=== PATIENT | male | born 1970 | race Caucasian/White ===

== ENCOUNTER 2024-02-23 19:57 | Emergency (ER) | payer OTHER, SELFPAY ==
[2024-02-23 19:58] VITALS: BP 179/89; PULSE 89; RESP 18; TEMP 36.6; O2SAT 98; BMI 30.4
--- NOTE | 2024-02-23 20:17 | EKG12_ITS ---
Test Reason : Blood Pressure : */* mmHG Vent. Rate : 82 BPM Atrial Rate : 82 BPM P-R Int : 142 ms QRS Dur : 102 ms QT Int : 352 ms P-R-T Axes : 48 -17 1 degrees QTcB Int : 411 ms Normal sinus rhythm Incomplete right bundle branch block Minimal voltage criteria for LVH, may be normal variant ( R in aVL ) Borderline ECG Confirmed by GERARDO BARFIELD, GAYLA ([id number]), fashion editor MANUEL MATHIS ([id number]) on 02/24/2024 9:47:27 AM Referred By: Confirmed By: GAYLA CARRILLO MD
--- NOTE | 2024-02-23 20:18 | ED.VIS.CHEST ---
HPI History of Present Illness Chief Complaint: Chest Other Informant: patient and spouse/S.O. Narrative Narrative: Intermittent midsternal chest tightness 4 to 5 days. More frequent over the last 2 days. Pain to his neck. No pain in arm or back. No dyspnea. Occasional cough. No tobacco history. No family history of rising age. No history of hypertension, diabetes, hyperlipidemia. Took couple aspirin 2 days ago. Took ibuprofen earlier today. Pain currently mild. Denies any history of stress test or heart caths in the past. Prior Similar Symptoms: No CVD Risk Factors: Negative for Hypertension, Diabetes, Hypercholesterolemia, Family History 1' </=55 or Smoking PE Risk Factors: Negative for Recent Travel/Surgery, Recent Immobilization or Prior DVT or PE [facility] Medical History Hepatitis Home Medications ?Medication ?Instructions ?Recorded ?Last Taken ?Type pantoprazole 40 mg tablet,delayed 40 mg PO DAILY #30 tabs 02/23/24 Unknown Rx release sucralfate 1 gram tablet (Carafate) 1 g PO Q6H #60 tabs 02/23/24 Unknown Rx Allergy/AdvReac Type Severity Reaction Status Date / Time No Known Allergies Allergy Verified 02/23/24 19:58 Family History no significant family his Surgical History no surgical history Social History Smoking Status: Never smoker [facility] ED Constitutional Constitutional ED: Denies chills, fever(s) or sweats ENT ENT ED: Denies sore throat Cardiovascular Cardiovascular: Reports chest pain; Denies leg edema, palpitations or racing heartbeat Respiratory/Chest Respiratory/Chest: Denies cough, dyspnea or dyspnea on exertion Gastrointestinal Gastrointestinal: Denies abdominal pain, diarrhea, nausea or vomiting Genitourinary Genitourinary ED: Denies dysuria, hematuria or urinary frequency Musculoskeletal Musculoskeletal: Reports neck pain; Denies back pain or extremity pain Integumentary Denies rash or wounds Neurologic Neurologic: Denies headache(s), paresthesias or weakness EXAM Physical Exam Const Vital Signs: 02/23/24 19:58 02/23/24 20:06 02/23/24 20:19 Temperature 98 F Temperature Source Oral Pulse Rate 89 Respiratory Rate 18 Respiratory Effort Normal Blood Pressure 179/89 H Blood Pressure Mean 119 Pulse Ox 98 99 Oxygen Delivery Method Room Air Room Air 02/23/24 21:58 Temperature Temperature Source Pulse Rate 72 Respiratory Rate 16 Respiratory Effort Blood Pressure 141/89 H Blood Pressure Mean 106 Pulse Ox 94 Oxygen Delivery Method Room Air Positive well nourished and well developed General Appearance ED: well developed and NAD HEENT Reports moist mucous membranes normocephalic and atraumatic Eyes General Eye ED: Yes normal appearance of both eyes Neck full ROM Chest Wall Chest: Negative for tenderness Resp normal respiratory effort and normal air movement Effort and Inspection: symmetric chest movement; Negative for respiratory distress Cardio regular rate, regular rhythm and no murmurs Peripheral Pulses: pulses 2+ throughout GI normal to inspection, nondistended, normoactive bowel sounds and non-tender Palpation: Negative for guarding or rebound tenderness present Extremity normal to inspection General Extremety ED: Negative for edema or tenderness General Extremity: Negative for edema Neuro oriented x3 and no sensory deficits noted Sensorium / Orientation: awake and alert Skin no rashes or lesions noted and no wounds Heart Score History: Slightly/Non-Suspicious ECG: Normal Age: >45 - <65 years Risk Factors: 1 or 2 Risk Factors Troponin: </= Normal Limit Score: 2 MDM MDM MDM Narrative Medical decision making narrative: Interventions / MDM: Differential diagnosis: Atypical chest pain, gastritis Diagnosis considered but do not suspect: Pneumonia however chest x-ray negative. My EKG interpretation: Sinus rate of 82, no ST changes, isolated T wave version leads III. Nonspecific. QTc 411. Imaging independently reviewed and interpreted by myself: 1 view chest x-ray: No acute process. External documents reviewed: N/A Test considered but not ordered:N/A ED course: Progressive chest symptoms more persistent with tightness. EKG is nonspecific T wave versions. Cardiac workup initiated. Aspirin ordered. 2144: Initial troponin negative. Chest x-ray negative. Hemoglobin 14.4. Creatinine 1.18. Patient states he feels minimal symptoms. He is reporting times symptoms do worsen with food. Denies black or bloody stools. He will be given a GI cocktail. Will await delta troponin. 0: Reports there was some improvement with the GI cocktail swish in the throat weakness only minimal symptom in the chest. Awaiting results of delta troponin at this time. 2255: Delta troponin negative at 8. He states daily when drinks 1 coffee does feel the indigestion symptoms. I will place on pantoprazole and Carafate. He denies any black or bloody stools he will monitor for this. He is given follow-up GI. 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 patient to discuss with his PCP potential pulmonary function test as an outpatient. All questions were answered. Re-evaluation: stable Disposition discussed with patient/family/significant other: Patient and spouse Case discussed with consulting clinician: N/A This note was generated with [employer] dictation software. It may contain incorrect words, spelling, and punctuation that were not noted in checking the note before signing. Lab Data Attestation: I reviewed the patient's lab results. Labs: Laboratory Results - last 24 hr 02/23/24 02/23/24 20:10 22:28 WBC 8.3 RBC 4.81 Hgb 14.4 Hct 42.1 MCV 87.5 MCH 29.9 MCHC 34.2 RDW Std Deviation 41.0 RDW Coeff of Sariah 12.7 Plt Count 235 MPV 9.5 Immature Gran % (Auto) 0.200 Neut % (Auto) 56.0 Lymph % (Auto) 34.5 [place] % (Auto) 7.4 Eos % (Auto) 1.5 Baso % (Auto) 0.4 Absolute Neuts (auto) 4.6 Absolute Lymphs (auto) 2.85 Nucleated RBC % 0 PT 12.4 INR 0.9 APTT 24.2 Sodium 139 Potassium 3.5 Chloride 105 Carbon Dioxide 27.0 Anion Gap 7 BUN 18 Creatinine 1.18 Estim Creat Clear Calc 80.72 Est GFR (MDRD) Af Amer 83 Est GFR (MDRD) Non-Af 68 BUN/Creatinine Ratio 15.3 Glucose 144 H Calcium 8.8 Troponin I High Sens 7 8 Radiography Diagnostic Testing: Clinical Impression(s) from Imaging Studies Chest X-Ray 02/23/24 20:36 IMPRESSION: No focal infiltrate or edema. Electronically Signed: Emmanuel Soni MD at 22:01 EST , Discharge Plan Triage Chief Complaint: Chest Other ED Provider: Regino Douglass Dx/Rx/DC Orders Clinical Impression: Atypical chest pain, Gastritis Instructions: ED Chest Pain, Uncertain Cause, ED Gastritis (Adult) Prescriptions: New sucralfate [Carafate] 1 gram tablet 1 g PO Q6H Qty: 60 0RF pantoprazole 40 mg tablet,delayed release (DR/EC) 40 mg PO DAILY Qty: 30 0RF Primary Care Provider: Charan Richmond Referrals: Blake Hsu DO [Non-Staff] - 3-5 Days Supa Maki DO [Med Staff - Active Staff] - 1-2 Weeks Activity Restrictions/Additional Instructions: Cardiac workup negative. Symptoms were improving with GI cocktail. Take GI medicines as prescribed. Watch for black or bloody stools. Follow-up with Dr. Maki for outpatient evaluation. Your chest x-ray is negative. You will concern with lung issues with your work exposure. Discussed with your primary care doctor potential pulmonary function test as an outpatient. Print Language: Surinamese Disposition Disposition: Home, Self Care
[2024-02-23 20:19] VITALS: O2SAT 99
[2024-02-23] MEDS: Aspirin 81 MG TAB.CHEW 324 MG PO (20:21)
[2024-02-23 20:24] LABS: Absolute Lymphocyte Count 2.85 X10^3/uL (0.83-4.51); Absolute Neutrophil Count 4.6 X10^3/uL (2.0-7.7); Basophil# 0.03 X10^3/uL; Basophil% 0.4 % (0-1); Eosinophil# 0.12 X10^3/uL; Eosinophils% 1.5 % (0-5); Hematocrit 42.1 % (40-54); Hemoglobin 14.4 g/dL (13.0-16.5); Lymphocyte # 2.85 X10^3/ul (0.83-4.51); Lymphocyte % 34.5 % (19-41); Mean Corp Hgb Conc 34.2 g/dL (32-36); Mean Corpuscular Hgb 29.9 pg (27.0-32.0); Mean Corpuscular Volume 87.5 fL (80-94); Mean Platelet Vol. 9.5 fl (6.2-12.0); Monocyte# 0.61 X10^3/uL; Monocyte% 7.4 % (0-10); NRBC Flagged by Analyzer 0 % (0-5); Neutrophil # 4.62 X10^3/uL (2.7-7.7); Platelet Count 235 K/mm3 (150-450); RBC Distribution Width CV 12.7 % (11.6-14.6); Red Blood Count 4.81 M/mm3 (4.6-6.2); White Blood Count 8.3 K/mm3 (4.4-11.0)
[2024-02-23 20:35] LABS: International Normalized Ratio 0.9; Prothrombin Time (Protime)PT. 12.4 SECONDS (11.7-14.9)
[2024-02-23 20:36] LABS: Partial Thromboplast Time 24.2 Seconds (24.1-36.2)
--- NOTE | 2024-02-23 20:36 | RAD_ITS ---
STUDY: X-RAY CHEST REASON FOR EXAM: Male, 54 years old. Chest pain TECHNIQUE: AP portable view of the chest. COMPARISON: None. FINDINGS: There are monitoring devices. The lungs are clear and expanded. There is no demonstrated pleural abnormality. Normal size heart. Normal mediastinum and amanda. Normal visualized pulmonary arteries. Normal visualized aortic arch and descending thoracic aorta. Normal visualized thoracic spine. There is calcification of the left shoulder and possible calcific tendinopathy. There is no demonstrated abnormality of the visualized soft tissue structures of the upper abdomen. RAD/Chest 1 View (Portable) IMPRESSION: No focal infiltrate or edema. Electronically Signed: Emmanuel Soni MD at 22:01 EST ,
[2024-02-23 20:42] LABS: Anion Gap 7 (5-15); BUN 18 mg/dL (7-18); BUN/Creat Ratio 15.3 RATIO (10-20); Calcium,Total 8.8 mg/dL (8.5-10.1); Chloride 105 mmol/L (98-107); Creatinine, Serum 1.18 mg/dL (0.70-1.30); EST Glomerular Filtration Rate 68 mL/min (>60); Est Glom Filt Rate - Afr Amer 83 mL/min (>60); Estimated Creatinine Clearance 80.72 ml/min; Glucose 144 mg/dL (74-106); Potassium 3.5 mmol/L (3.5-5.1); Sodium Level 139 mmol/L (136-145); Troponin-I HS (w/2H Reflex) 7 pg/mL (3.0-78.0)
[2024-02-23] MEDS: Lidocaine 2% Viscous15 ML UDC 15 ML PO (21:52)
[2024-02-23] MEDS: Mag Hydrox/Al Hydrox/Simeth 30 ML UDC PO (21:52)
[2024-02-23 21:58] VITALS: BP 141/89; PULSE 72; RESP 16; O2SAT 94
[2024-02-23 22:20] LABS: Reflex Troponin-HS? (from REC) Y
[2024-02-23 22:51] LABS: Troponin-I HS 8 pg/mL (3.0-78.0)
[2024-02-23 23:00] VITALS: BP 135/82; PULSE 69; RESP 14; O2SAT 97
[2024-02-23 23:03] VITALS: BP 135/82; PULSE 69; RESP 14; TEMP 36.6; O2SAT 97
== END 2024-02-23 23:09 | disposition home or self-care (01) ==
PROVIDERS: Emergency Provider Emergency Medicine; PCP Family Medicine; Visit Provider Emergency Medicine
DX: R07.89 Other chest pain (principal); K29.70 Gastritis, unspecified, without bleeding
CPT/HCPCS: 71045; 80048; 84484; 85025; 85610; 85730; 93005; 99284; A4216

== ENCOUNTER 2024-03-30 05:34 | Day surgery (SDC) | payer SELFPAY, OTHER ==
--- NOTE | 2024-03-28 16:02 | PAT.ANESEVAL ---
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 When Was Last Pacemaker Check QUESTION #4 FULL TEXT: You/Your Family Experience fever (hyperthermia) with Anesthesia Last Oral Intake Last Oral intake: Last Oral Intake NPO since Meds taken in AM with sips of water? Meds patient instructed to take am of surgery PONV PONV - college and career counselor: PONV - college and career counselor Female No 03/28/24 14:00 HX of Motion Sickness No 03/28/24 14:00 HX of N/V After Surgery No 03/28/24 14:00 Non-Smoker Yes 03/28/24 14:00 Duration of Surgery greater No 03/28/24 14:00 than 60 minutes Number of Risk Factors 1 03/28/24 14:00 PONV Score Low Risk 03/28/24 14:00 Height & Weight Height & Weight: Anesthesia: Height & Weight Height 5 ft 9 in 02/23/24 19:58 Respiratory Assessment Respiratory Assessment - college and career counselor: Respiratory Tract Infection Hx - college and career counselor Hx Respiratory Tract Infection No 03/28/24 14:00 STOP Sleep Apnea STOP Sleep Apnea - college and career counselor: STOP Sleep Apnea - college and career counselor Hx Hypertension No 03/28/24 14:00 Hx Sleep Apnea No 03/28/24 14:00 CPAP BIPAP Do you snore loudly (louder No 03/28/24 14:00 than talking or can be heard Do you often feel tired/ No 03/28/24 14:00 fatigued/ sleepy during daytime? Has anyone observed you stop No 03/28/24 14:00 breathing during sleep? STOP Results Negative 03/28/24 14:00 QUESTION #5 FULL TEXT : Do you snore loudly (louder than talking or can be heard through closed doors)? 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 Specify any problems Hx of Preganancy in last 3 N/A 03/28/24 14:00 Months Nurse Filling Out Transfusion NBUCHER 03/28/24 14:00 & Questions: Date: 03/28/24 03/28/24 14:00 Time: 14:01 03/28/24 14:00 Patient unable to answer at this time (ie. confused, unrespo /Reproduction History /Reproductive History - college and career counselor: /Reproductive Hx- college and career counselor Hx Now No 03/28/24 14:00 Gestational Age (in weeks): EDC: Hx Hx Para Hx Section SAB No 03/28/24 14:00 REPLACED BY [facility] Medical History (Updated 03/28/24 @ 14:04 by Lauren Sanchez) Wears glasses GERD (gastroesophageal reflux disease) Hepatitis Home Medications ?Medication ?Instructions ?Recorded ?Last Taken ?Type pantoprazole 40 mg tablet,delayed 40 mg PO DAILY #30 tabs 03/02/24 Unknown Rx release sucralfate 1 gram tablet (Carafate) 1 g PO Q6H #60 tabs 03/02/24 Unknown Rx Allergy/AdvReac Type Severity Reaction Status Date / Time No Known Allergies Allergy Verified 03/28/24 13:59 Family History no significant family his Social History Smoking Status: Never smoker Audit: Pertinent Findings HISTORY of Pertinent Findings History of Pertinent Findings: EKG from 02/23/24 showed incomplete RBB . No documented cardiac symptoms. Pertinent Findings EKG Perinent findings: incomplete RBB Recommendation Anesthesia Recommendation Anesthesia recommendation: OPTIMIZED for anesthesia
[2024-03-30] VITALS (8 sets, daily range): BP systolic 98–122; BP diastolic 67–89; PULSE 51–60; RESP 16–20; TEMP 36.6–36.8; O2SAT 93–98; BMI 29.5
--- NOTE | 2024-03-30 06:14 | PRE.ANES_ITS ---
ASA Classification* ASA Classification ASA Classification: 2 Assessment & Plan Anesthesia* Anesthesia Assessment Anesthesia Assessment: Discussed sedation and/or anesthesia options, risks, benefits, and alternatives with patient/parents/legal guardian/POA. Questions invited. The patient/parents/legal guardian/POA seems to understand and agrees to proceed with anesthesia plan. Reviewed the physical assessment, medical history, allergy history and patient home medications list prior to surgery/procedure/anesthetic and documented any changes. Performed airway and anesthesia risk assessments. Anesthesia Type Anesthesia Type: MAC History Source History Obtained from:: Patient and Chart Anesthesia Focused Assessment* Temperature: 98.2 F Pulse Rate: 58 Blood Pressure: 117/89 Respiratory Rate: 18 Pulse Ox: 98 Airway Assessment Mouth opens: >3 cm Mallampati Score: I Focused Labs Anesthesia Preop lab: CBC WBC 8.3 K/mm3 (4.4-11.0) 02/23/24 20:10 02/23/24 RBC 4.81 M/mm3 (4.6-6.2) 02/23/24 20:10 02/23/24 Hgb 14.4 g/dL (13.0-16.5) 02/23/24 20:10 02/23/24 Hct 42.1 % (40-54) 02/23/24 20:10 02/23/24 Plt Count 235 K/mm3 (150-450) 02/23/24 20:10 02/23/24 CHEMISTRY Potassium 3.5 mmol/L (3.5-5.1) 02/23/24 20:10 02/23/24 Sodium 139 mmol/L (136-145) 02/23/24 20:10 02/23/24 BUN 18 mg/dL (7-18) 02/23/24 20:10 02/23/24 Creatinine 1.18 mg/dL (0.70-1.30) 02/23/24 20:10 02/23/24 Glucose 144 mg/dL (74-106) H 02/23/24 20:10 02/23/24 COAG PT 12.4 SECONDS (11.7-14.9) 02/23/24 20:10 Pre-Assessment Diagnosis/Proposed Procedure Planned Operative Procedure(s): EGD Anesthesia History 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 When Was Last Pacemaker Check QUESTION #4 FULL TEXT: You/Your Family Experience fever (hyperthermia) with Anesthesia Last Oral Intake Last Oral intake: Last Oral Intake NPO since 21:00 03/30/24 05:54 Meds taken in AM with sips of No 03/30/24 05:54 water? 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 Female No 03/28/24 14:00 HX of Motion Sickness No 03/28/24 14:00 HX of N/V After Surgery No 03/28/24 14:00 Non-Smoker Yes 03/28/24 14:00 Duration of Surgery greater No 03/28/24 14:00 than 60 minutes Number of Risk Factors 1 03/28/24 14:00 PONV Score Low Risk 03/28/24 14:00 Height & Weight Height & Weight: Anesthesia: Height & Weight Height 5 ft 9 in 03/30/24 05:54 Weight: 90.7 kg 03/30/24 05:54 Body Mass Index (BMI) 29.5 03/30/24 05:54 Respiratory Assessment Respiratory Assessment - secretarial teacher: Respiratory Tract Infection Hx - secretarial teacher Hx Respiratory Tract Infection No 03/28/24 14:00 STOP Sleep Apnea STOP Sleep Apnea - secretarial teacher: STOP Sleep Apnea - secretarial teacher Hx Hypertension No 03/28/24 14:00 Hx Sleep Apnea No 03/28/24 14:00 CPAP BIPAP Do you snore loudly (louder No 03/28/24 14:00 than talking or can be heard Do you often feel tired/ No 03/28/24 14:00 fatigued/ sleepy during daytime? Has anyone observed you stop No 03/28/24 14:00 breathing during sleep? STOP Results Negative 03/28/24 14:00 QUESTION #5 FULL TEXT : Do you snore loudly (louder than talking or can be heard through closed doors)? 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 Specify any problems Hx of Preganancy in last 3 N/A 03/28/24 14:00 Months Nurse Filling Out Transfusion NBUCHER 03/28/24 14:00 & Questions: Date: 03/28/24 03/28/24 14:00 Time: 14:01 03/28/24 14:00 Patient unable to answer at this time (ie. confused, unrespo /Reproduction History /Reproductive History - secretarial teacher: /Reproductive Hx- secretarial teacher Hx Now No 03/28/24 14:00 Gestational Age (in weeks): EDC: Hx Hx Para Hx Section SAB No 03/28/24 14:00 [facility] Medical History (Updated 03/28/24 @ 14:04 by Lauren Sanchez) Wears glasses GERD (gastroesophageal reflux disease) Hepatitis Home Medications ?Medication ?Instructions ?Recorded ?Last Taken ?Type pantoprazole 40 mg tablet,delayed 40 mg PO DAILY #30 t abs 03/02/24 03/27/24 Rx release sucralfate 1 gram tablet (Carafate) 1 g PO Q6H #60 tab s 03/02/24 03/27/24 Rx Allergy/AdvReac Type Severity Reaction Status Date / Time No Known Allergies Allergy Verified 03/30/24 05:53 Family History no significant family his Social History Smoking Status: Never smoker Addt'l Information Additional Findings: Patient states [place], when donated blood said he might be HEP B positive (15 years ago per patient) Review of Systems (Anesthesia) ROS Narrative System reviewed and no additional complaints, except as documented. Gastrointestinal Gastrointestinal: Reports heartburn
--- NOTE | 2024-03-30 06:30 | EGD_PTH ---
PATIENT: LEAH THORNTON LOC: [facility] U#:[id number] AGE/SX: 54/M ROOM: RE03/30/[address]: Dr. Supa Maki DO : 1970 BED: DIS: 03/30/2024 SPEC #: [id number] RECD: 03/30/24 14:08 STATUS: CHERISE JORGE #: [id number] SAMARIA: 03/30/24 06:[address]: Supa Maki DEPT: SURGICAL PATHOLOGY RECD BY: Ana Cobb ENTERED: 04/02/24 08:36 SP TYPE: EGD BIOPSY OT DR: Dr. Charan Richmond DO Tissues: A - Duodenum, NOS B - Gastric mucous membrane C - Esophagus, NOS Procedures: Special Stain Group I Surgery Specimen Level IV Alcian Blue/PAS (control) HEADER OPERATION: EGD with biopsy PRE-OP DIAGNOSIS: Epigastric abdominal pain TISSUE SUBMITTED: A- Duodenum biopsy, B- Gastric body biopsy, C- Distal esophagus biopsy MICROSCOPIC DIAGNOSIS A. Duodenum, biopsy: Fragments of duodenal mucosa with congestion and hemorrhage. B. Gastric body, biopsy: Mild gastritis. See microscopic description and comment. C. Distal esophagus, biopsy: Fragments of gastroesophageal mucosa with focal intestinal metaplasia (goblet cell metaplasia), consistent with Mac's esophagus. Moderate chronic inflammation and minimal acute inflammation. Negative for dysplasia. See comment. 04/03/2024 COMMENT B. The results of immunohistochemistry for Helicobacter pylori will be reported separately ([id number]). C. Alcian blue/PAS stain with matched control is used in the evaluation of the specimen. Immunohistochemistry ([id number]) for P53 and Ki-67 will be performed, and results will be reported separately. MICROSCOPIC DESCRIPTION Slides are reviewed. B. The specimen shows fragments of gastric mucosa with chronic inflammatory cell infiltrates in the lamina propria consisting of lymphocytes and plasma cells, consistent with mild chronic gastritis. GROSS DESCRIPTION A. Received in fixative is one container labeled with the patient's name and designated Duodenum biopsy. The specimen consists of multiple irregular fragments of light quezada soft tissue that in aggregate measure 1.1 x 0.2 x 0.2 cm. The specimen is totally submitted in one cassette. B. Received in fixative is one container labeled with the patient's name and designated Gastric body biopsy. The specimen consists of one irregular fragment of light quezada soft tissue that measures 0.8 x 0.2 x 0.2 cm. The specimen is totally submitted in one cassette. C. Received in fixative is one container labeled with the patient's name and designated Distal esophagus biopsy. The specimen consists of two irregular fragments of light quezada soft tissue that in aggregate measure 0.9 x 0.3 x 0.2 cm. The specimen is totally submitted in one cassette. 04/02/2024 TC:3 CPT:56603r2,46344
--- NOTE | 2024-03-30 06:30 | IMM_PTH ---
PATIENT: LEAH THORNTON LOC: [facility] U#:[id number] AGE/SX: 54/M ROOM: RE03/30/[address]: Dr. Supa Maki DO : 1970 BED: DIS: 03/30/2024 SPEC #: [id number] RECD: 04/02/24 08:44 STATUS: CHERISE REQ #: [id number] SAMARIA: 03/30/24 06:[address]: Supa Maki DEPT: IMMUNOHISTOCHEMISTRY RECD BY: Sergey Amaya ENTERED: 04/02/24 08:44 SP TYPE: IMMUNO OTHR DR: Dr. Charan Richmond DO Tissues: B - Gastric mucous membrane C - Esophagus, NOS Procedures: H Pylori (initial) P53 (initial) KI-67 (add) PHYSICIAN [facility] INSTITUTION [address] [address] SPECIMEN INFORMATION: Tissue Source: B- Gastric body biopsy, C- Distal esophagus biopsy Clinical Info: Epigastric abdominal pain Specimen Number: [id number] B, C CPT code: 05785x6,70102 METHODOLOGY: Deparaffinized sections of prefer/formalin-fixed tissue or PAP/DQ stained slides are incubated with monoclonal/polyclonal antibodies/oligonucleotide probes. Localization is made via biotin free immunoperoxidase method. Appropriate controls are performed and reacted as expected. Results on target cell population are indicated in the following table: RESULTS: ANTIBODY / CLONE RESULT Block B H Pylori (polyclonal) negative Block C P53 (DO-7) positive, focal (wild type pattern) Ki-67 (30-9) positive, low These tests were developed and their performance characteristics determined by [facility]. They may not have been cleared or approved by the U.S. Food and Drug Administration. The FDA has determined that such clearance or approval is not necessary. The above immunohistochemical/dualISH markers are ordered and reviewed by the Pathologist. INTERPRETATION: B. Gastric body, biopsy: Negative for Helicobacter pylori organisms. C. Distal esophagus, biopsy: Negative for dysplasia. DIANE. 04/03/2024
--- NOTE | 2024-03-30 06:45 | HP.PCM_ITS ---
HPI - General General Date of Admission: 03/30/24 Date of Service: 03/30/24 Chief Complaint: Abdominal pain and GERD HPI Narrative LEAH THORNTON, is a 54 M who presentsDAVIAlberto THORNTON, is a 54 M who presents for endoscopic evaluation of noncardiac chest pain and GERD. [facility] ED 12.26.24 w/ mid sternal chest tightness for 4-5 days. Cardiac work up negative. Improvement with Gi cocktail and discharged. Started on pantoprazole and carafate. OV 1.3.25 Pt has been doing well since his ED visit. He is no longer having the epigastric/sternal pain. He is unsure if it went away on its own or if the PPI and carafate helped. It was not worse with eating. he did not have any other GI symptoses at the time. He is interested in getting an EGD to assess why he may of had this pain. [facility], [facility] Medical History Wears glasses GERD (gastroesophageal reflux disease) Hepatitis Home Medications ?Medication ?Instructions ?Recorded ?Last Taken ?Type pantoprazole 40 mg tablet,delayed 40 mg PO DAILY #30 t abs 03/02/24 03/27/24 Rx release sucralfate 1 gram tablet (Carafate) 1 g PO Q6H #60 tab s 03/02/24 03/27/24 Rx Allergy/AdvReac Type Severity Reaction Status Date / Time No Known Allergies Allergy Verified 03/30/24 05:53 Social History Smoking Status: Never smoker ROS Constitutional Constitutional: Denies fatigue, fever(s), poor appetite, weight gain or weight loss Gastrointestinal Gastrointestinal: Denies belching, bloating, change in bowel habits, change in stool character, chewing difficulty, coffee ground emesis, constipation, cramping, diarrhea, dyspepsia, dysphagia, early satiety, excessive flatus, fecal incontinence, heartburn, hematemesis, hematochezia, hemorrhoids, loose stools, melena, nausea, odynophagia, rectal bleeding, tenesmus, vomiting or weight changes Vital Signs Vital Signs Vital Signs: 03/30/24 05:54 03/30/24 05:54 03/30/24 06:17 Temperature 98.2 F 98.2 F Temperature Source Temporal Pulse Rate 58 L 58 L Respiratory Rate 18 18 Respiratory Pattern Normal Blood Pressure 117/89 H 117/89 H Blood Pressure Mean 98 Blood Pressure Source Monitor Blood Pressure Position Semi-Fowlers Blood Pressure Location Left Arm Pulse Ox 98 98 Oxygen Delivery Method Room Air Weight Weight: 199 lb 15.348 oz Body Mass Index (BMI) 29.5 Physical Exam Const alert, oriented x3, no apparent distress and healthy appearing General Appearance: cooperative GI normal to inspection, nondistended, normoactive bowel sounds, soft to palpation, non-tender and non-distended Percussion: normal to percussion Rectal Exam: deferred Assessment & Plan Assessment/Plan (1) Epigastric abdominal pain: PLAN: Assessment and Plan Assessment and Plan (1) Epigastric abdominal pain: Status: Acute Plan: This is a 54 yo male pt here today for evaluation of epigastric pain for one week. Pt was seen in the ED and cardiac etiology ruled out. He was discharged with PPI and Carafate. He is no longer having these issues. Pt would like to have an EGD to rule out any inflammation within his upper GI tract. He will be scheduled for this. He will continues PPI and carafate in the meantime -EGD -Continue PPI and Carafate -f/u after procedure Medications: Refilled pantoprazole 40 mg PO DAILY 30 tabs 0RF sucralfate (Carafate) 1 g PO Q6H 60 tabs 0RF
--- NOTE | 2024-03-30 07:04 | OP.CCLET_ITS ---
03/30/2024 Charan Richmond Re : Upper GI endoscopy procedure for Aki Barlow Dear Yi This procedure was performed on Saturday, March 30, 2024. My impressions and recommendations are as follows: Impressions : - LA Grade A reflux esophagitis with no bleeding. Biopsied. - Small hiatal hernia. - Erythematous mucosa in the gastric body. Biopsied. - Erythematous duodenopathy. Biopsied. Recommendations : - Discharge patient to home. - Resume previous diet. - Continue present medications. - Await pathology results. My findings are described in the full procedure note, which is enclosed. If I can be of further assistance, please feel free to contact me at . Sincerely, Supa Maki, 03/30/2024 7:03:07 AM This report has been signed electronically.
--- NOTE | 2024-03-30 07:04 | OP.EGD_ITS ---
Patient Name: Aki Barlow Procedure Date: 03/30/2024 6:34 AM Date of : 1970 Age: 54 Procedure: Upper GI endoscopy Indications: Heartburn, Suspected esophageal reflux Providers: Supa Maki DO Referring MD: Charan Richmond Medicines: Monitored Anesthesia Care Patient Profile: This is a 54 year old male. Refer to note in patient chart for documentation of history and physical. Patient has symptoms of chronic chest pain and chronic heartburn. Complications: No immediate complications. Procedure: Pre-Anesthesia Assessment: - Prior to the procedure, a History and Physical was performed, and patient medications and allergies were reviewed. The patient is competent. The risks and benefits of the procedure and the sedation options and risks were discussed with the patient. All questions were answered and informed consent was obtained. Patient identification and proposed procedure were verified by the physician in the pre-procedure area. Mental Status Examination: alert and oriented. Airway Examination: normal oropharyngeal airway and neck mobility. Respiratory Examination: clear to auscultation. CV Examination: normal. Prophylactic Antibiotics: The patient does not require prophylactic antibiotics. Prior Anticoagulants: The patient has taken no anticoagulant or antiplatelet agents except for NSAID medication. ASA Grade Assessment: II - A patient with mild systemic disease. After reviewing the risks and benefits, the patient was deemed in satisfactory condition to undergo the procedure. The anesthesia plan was to use monitored anesthesia care (MAC). Immediately prior to administration of medications, the patient was re-assessed for adequacy to receive sedatives. The heart rate, respiratory rate, oxygen saturations, blood pressure, adequacy of pulmonary ventilation, and response to care were monitored throughout the procedure. The physical status of the patient was re-assessed after the procedure. After obtaining informed consent, the endoscope was passed under direct vision. Throughout the procedure, the patient's blood pressure, pulse, and oxygen saturations were monitored continuously. The gastroscope was introduced through the mouth, and advanced to the second part of duodenum. The upper GI endoscopy was accomplished without difficulty. The patient tolerated the procedure well. Scope In: 6:54:58 AM Scope Out: 6:58:50 AM Total Procedure Duration Time 0 hours 3 minutes 52 seconds Findings: LA Grade A (one or more mucosal breaks less than 5 mm, not extending between tops of 2 mucosal folds) esophagitis with no bleeding was found 36 to 39 cm from the incisors. Biopsies were taken with a cold forceps for histology. Verification of patient identification for the specimen was done. Estimated blood loss was minimal. A small hiatal hernia was present. Patchy mildly erythematous mucosa without bleeding was found in the gastric body. Biopsies were taken with a cold forceps for histology. Verification of patient identification for the specimen was done. Estimated blood loss was minimal. Biopsies were taken with a cold forceps for Helicobacter pylori testing. Verification of patient identification for the specimen was done. Estimated blood loss was minimal. Patchy mildly erythematous mucosa without active bleeding and with no stigmata of bleeding was found in the duodenal bulb. Biopsies were taken with a cold forceps for histology. Verification of patient identification for the specimen was done. Estimated blood loss was minimal. Impression: - LA Grade A reflux esophagitis with no bleeding. Biopsied. - Small hiatal hernia. - Erythematous mucosa in the gastric body. Biopsied. - Erythematous duodenopathy. Biopsied. Recommendation: - Discharge patient to home. - Resume previous diet. - Continue present medications. - Await pathology results. Procedure Code(s): --- Professional --- 32308, Esophagogastroduodenoscopy, flexible, transoral; with biopsy, single or multiple CPT copyright 2021 [employer]. All rights reserved. The codes documented in this report are preliminary and upon potato peeling machine operator review may be revised to meet current compliance requirements. Supa Maki DO 03/30/2024 7:03:07 AM This report has been signed electronically. Number of Addenda: 0 Note Initiated On: 03/30/2024 6:34 AM
--- NOTE | 2024-03-30 07:04 | PCM.POST.ANE ---
Anesthesia: Postop Eval I Current Vital Signs Temperature: 98.3 F Pulse Rate: 59 Blood Pressure: 122/85 Respiratory Rate: 20 Pulse Ox: 95 Assessment Airway patent: Yes Spontaneous unlabored respirations: Yes nausea: No Vomiting: No Anesthesia Complication: No Fluid Hydration Crystalloid volume administer (ml): 10 Total IV fluid infused: 10 Progress Note Anesthesia document: Postop Eval 1 completed: Yes
--- NOTE | 2024-03-30 07:32 | POSTOPAN2_ITS ---
Anesthesia Postop Eval I Sum Postop Eval Completion status Anesthesia document: Postop Eval 1 completed: Yes Anesthesia Postop Eval I Summary Anesthesia Postop Eval I Summary: Anesthesia Postop Eval I: Assessment Summary Airway patent Yes 03/30/24 07:04 [email or web address] [email or web address] Spontaneous unlabored Yes 03/30/24 07:04 STEEL [email or web address] respirations Mental status nausea No 03/30/24 07:04 STEEL [email or web address] Vomiting No 03/30/24 07:04 STEEL [email or web address] Anesthesia Postop Eval I: Fluid Summary Crystalloid volume administer 10 03/30/24 07:04 STEEL [email or web address] (ml) Colloids volume administered ( ml) Blood Product volume administered (ml) Total IV fluid infused 10 03/30/24 07:04 STEEL [email or web address] Anesthesia Postop Eval I: Summary Notes Anesthesia Complication No 03/30/24 07:04 STEEL [email or web address] Anesthesia Complication Comment: Post-operative progress note Anesthesia: Postop Eval II Evaluation Mental status: Awake Pain Level: 0 nausea: No Vomiting: No
--- NOTE | 2024-03-30 07:32 | PCM.POSTANE2 ---
Anesthesia Postop Eval I Sum Postop Eval Completion status Anesthesia document: Postop Eval 1 completed: Yes Anesthesia Postop Eval I Summary Anesthesia Postop Eval I Summary: Anesthesia Postop Eval I: Assessment Summary Airway patent Yes 03/30/24 07:04 INDUSTRIAL ENGINEERING [email or web address] Spontaneous unlabored Yes 03/30/24 07:04 INDUSTRIAL ENGINEERING TECHNICIAN.CSIR respirations Mental status nausea No 03/30/24 07:04 INDUSTRIAL ENGINEERING TECHNICIAN.CSIR Vomiting No 03/30/24 07:04 INDUSTRIAL ENGINEERING TECHNICIAN.CSIR Anesthesia Postop Eval I: Fluid Summary Crystalloid volume administer 10 03/30/24 07:04 INDUSTRIAL ENGINEERING TECHNICIAN.CSIR (ml) Colloids volume administered ( ml) Blood Product volume administered (ml) Total IV fluid infused 10 03/30/24 07:04 INDUSTRIAL ENGINEERING TECHNICIAN.CSIR Anesthesia Postop Eval I: Summary Notes Anesthesia Complication No 03/30/24 07:04 INDUSTRIAL ENGINEERING TECHNICIAN.CSIR Anesthesia Complication Comment: Post-operative progress note Anesthesia: Postop Eval II Evaluation Mental status: Awake Pain Level: 0 nausea: No Vomiting: No
== END 2024-03-30 07:51 | disposition home or self-care (01) ==
LOC: EN 05:34 → AC 05:35
PROVIDERS: PCP Family Medicine; Referring Provider Family Medicine; Visit Provider Internal Medicine Gastroenterology
PROC: 0DJ08ZZ Inspection of Upper Intestinal Tract, Via Natural or Artificial Opening Endoscopic (ICD-10-PCS; CPT 43235; principal; 2024-03-30 06:25)
DX: K21.00 Gastro-esophageal reflux disease with esophagitis, without bleeding (principal); K22.70 Barrett's esophagus without dysplasia; K44.9 Diaphragmatic hernia without obstruction or gangrene; K29.50 Unspecified chronic gastritis without bleeding; K31.89 Other diseases of stomach and duodenum; Z79.899 Other long term (current) drug therapy
CPT/HCPCS: 43239; 88305; 88312; 88341; 88342; A4216; J2405